=== PATIENT | female | born 1985 | race American Indian/Alaskan Native ===

== ENCOUNTER 2017-09-22 08:20 | Emergency (ER) | payer OTHER ==
[2017-09-22] MEDS ORDERED: REGLAN IV ONE (08:55)
[2017-09-22] MEDS ORDERED: TYLENOL PO ONE (08:55)
[2017-09-22] MEDS ORDERED: ZOFRAN IV ONE (08:55)
--- NOTE | 2017-09-22 08:55 | Emergency Department Report ---
Chief Complaint: Headache Stated Complaint: HEADACHE/NAUSEA Time Seen by Provider: 09/22/17 08:48 - HPI History of Present Illness: This is a 31-year-old female presents to emergency room reports that she hasn't been really bad headaches located frontally she reports that her headache is 9 out of 10 and it tight and squeezing her forehead worse on the left side. She states that she is 7 weeks and she has an appointment to see CRACKING AND FANNING MACHINE OPERATOR Dr. Joslyn Candelario in 2 days. Blood pressure is elevated at 168/90 and she is diabetic and said she did not know what her blood sugar was she did not take it today. She reports nausea and some dizziness but report any vaginal bleeding, discharge, urinary burning, frequency or urgency. She denies any abdominal or back pain. Denies any blurred vision. Denies any shortness of breath or chest pain. Primary care physician in [place]. No medication taken for headache. This is her third with history of 2 miscarriages. - ROS Review of Systems: All systems are negative unless stated in HPI above - Exam Vital Signs: Vital Signs 09/22/17 08:26 Temperature 97.9 F Pulse Rate 98 H Respiratory 18 Rate Blood Pressure 168/90 O2 Sat by Pulse 99 Oximetry Physical Exam: Gen.: 31-year-old female well-nourished well-developed appears to be feeling bad. Head: Normocephalic, atraumatic. No contusion or abrasions Mini neurological exam: Alert and oriented 3, GCS of 14, no facial droop. Normal speech. Gait is normal. Extremities: No clubbing, cyanosis or edema. +2 pulses throughout extremities and no neurovascular compromise MSE screening note: Focused history and physical exam performed. Due to findings the following was ordered: Please refer to screening orders ED Medical Decision Making - Medical Decision Making MDM screening: Patient seen and appropriate orders placed. She is stable. IV fluid, IV meds ordered. See orders for lab. Patient to be seen by [facility]. She is weeks' , diabetes and hypertension. No primary care follow-up ED Disposition for MSE Condition: Stable Referrals: PRIMARY CARE, [Primary Care Provider] - 3-5 Days
[2017-09-22] MEDS ORDERED: NACL 0.9% 1000 ML 1,000 ML IV ONE (08:57)
[2017-09-22 09:29] LABS: Basophils # (Auto) 0.1 K/mm3 (0.0-0.1); Basophils % (Auto) 0.9 % (0.0-1.8); Eosinophils # (Auto) 0.1 K/mm3 (0.0-0.4); Hematocrit 42.7 % (30.3-42.9); Hemoglobin 14.5 gm/dl (10.1-14.3); Lymphocytes # (Auto) 1.5 K/mm3 (1.2-5.4); Lymphocytes % (Auto) 18.4 % (13.4-35.0); Mean Corpuscular HGB Conc 34 % (30-34); Mean Corpuscular Hemoglobin 30 pg (28-32); Mean Corpuscular Volume 89 fl (79-97); Monocytes # (Auto) 0.3 K/mm3 (0.0-0.8); Monocytes % (Auto) 4.1 % (0.0-7.3); Platelet Count 395 K/mm3 (140-440); Red Blood Count 4.82 M/mm3 (3.65-5.03); Red Cell Distribution Width 14.2 % (13.2-15.2)
[2017-09-22 09:32] LABS: BUN/Creatinine Ratio 16; Blood Urea Nitrogen 8 mg/dL (7-17); Calcium 9.8 mg/dL (8.4-10.2); Hemolysis Index 31
[2017-09-22] MEDS ORDERED: NORMODYNE IV ONE (09:49)
--- NOTE | 2017-09-22 10:22 | Emergency Department Report ---
HPI - General Chief Complaint: Headache Time Seen by Provider: 09/22/17 08:48 - HPI HPI: This is a 31-year-old female presents to emergency room reports with a complaint of a frontal headache that is 9 out of 10 and it tight and squeezing her forehead. She states that she is 7 weeks and with 2 previous miscarriage. She just moved up here from [place] and therefore does not have any local primary care physician or PROFESSOR OF ENVIRONMENTAL ENGINEERING. However she has an appointment to see PROFESSOR OF ENVIRONMENTAL ENGINEERING Dr. Joslyn Candelario in 2 days. Blood pressure is elevated at 168/90 and she is diabetic. She reports nausea and some dizziness but denies any vaginal bleeding, discharge, urinary burning, frequency or urgency, abdominal or back pain. Denies any blurred vision. Denies any shortness of breath or chest pain. She has not taken anything for her headache prior to presentation. She was on hydrochlorothiazide but stopped taking it recently secondary to the . ED Past Medical Hx - Past Medical History Hx Hypertension: Yes Hx Diabetes: Yes - Social History Smoking Status: Never Smoker - Medications Home Medications: Home Medications Medication Instructions Recorded Confirmed Last Taken Type Labetalol [Normodyne TAB] 100 mg PO BID #40 tablet 09/22/17 Unknown Rx Vit-Fe Fumar-FA [ 1 tab PO QDAY #30 tablet 09/22/17 Unknown Rx Vitamin] ED Review of Systems ROS: Stated complaint: HEADACHE/NAUSEA Other details as noted in HPI Comment: All other systems reviewed and negative Constitutional: denies: chills, fever Eyes: denies: eye pain, eye discharge, vision change ENT: denies: ear pain, throat pain Respiratory: denies: cough, shortness of breath, wheezing Cardiovascular: denies: chest pain, palpitations Gastrointestinal: nausea. denies: abdominal pain, vomiting Genitourinary: denies: urgency, dysuria, discharge Musculoskeletal: denies: back pain, joint swelling, arthralgia Skin: denies: rash, lesions Neurological: headache. denies: numbness, paresthesias Physical Exam - Physical Exam Vital Signs: Vital Signs 09/22/17 09/22/17 08:26 10:16 Temperature 97.9 F Pulse Rate 98 H 98 H Respiratory 18 Rate Blood Pressure 168/90 168/90 O2 Sat by Pulse 99 Oximetry Physical Exam: GENERAL: The patient is well-developed well-nourished. HENT: Normocephalic. Atraumatic. Patient has moist mucous membranes. EYES: Extraocular motions are intact. Pupils equal reactive to light bilaterally. NECK: Supple. Trachea is midline. CHEST/LUNGS: Clear to auscultation. There is no respiratory distress noted. HEART/CARDIOVASCULAR: Regular. There is no tachycardia. There is no murmur. ABDOMEN: Abdomen is soft, nontender. Patient has normal bowel sounds. There is no abdominal distention. SKIN: Skin is warm and dry. No appreciable lower extremity edema. NEURO: The patient is awake, alert, and oriented. The patient is cooperative. The patient has no focal neurologic deficits. The patient has normal speech. Cranial nerves II through XII grossly intact. MUSCULOSKELETAL: There is no tenderness or deformity. There is no evidence of acute injury. ED Course Vital Signs 09/22/17 09/22/17 08:26 10:16 Temperature 97.9 F Pulse Rate 98 H 98 H Respiratory 18 Rate Blood Pressure 168/90 168/90 O2 Sat by Pulse 99 Oximetry ED Medical Decision Making - Lab Data Result diagrams: 09/22/17 09:07 09/22/17 09:07 - Medical Decision Making The patient was reevaluated multiple times for multiple hours and is feeling improved. Labs are mostly unremarkable. She had about 20 ketones in the urine but no urinary tract infection. She might have some mild dehydration and was given a liter of IV fluid. She was given some medication for nausea and that has completely resolved. She says her headache is down to about a 1-2 out of 10 and greatly improved. Labs do not show any renal insufficiency, signs of infection or proteinuria. She was given a small dose of labetalol and her blood pressure came down to a much more reasonable level. Since she does not have any complaints of any vaginal bleeding, back pain or abdominal pain, I did not feel that we needed to do any ultrasound imaging regarding her . She is not far enough along for heart tones alone. She has an appointment coming up this Sunday with her PROFESSOR OF ENVIRONMENTAL ENGINEERING. Her blood sugar was slightly elevated at 230 and came down to about 200 with just IV fluid resuscitation. As she is on a diabetes pill that may not be safe for , we have discussed dietary changes to make and that her PROFESSOR OF ENVIRONMENTAL ENGINEERING can decide how to better treat her diabetes while . I have changed her blood pressure medication from hydrochlorothiazide to labetalol 100 mg twice daily. We discussed dietary changes to make for her hypertension as well. We also discussed keeping a blood pressure log as well as a log of her pulse to make sure that this medication is working and does not cause any hypotension or bradycardia. She will return immediately to the emergency Department with any worsening of her symptoms or any acute distress. - Differential Diagnosis preeclampsia, dehydration, viral syndrome, hyperemesis gravidarum, tension Critical Care Time: No Critical care attestation.: If time is entered above; I have spent that time in minutes in the direct care of this critically ill patient, excluding procedure time. ED Disposition Clinical Impression: Dehydration Qualifiers: Weeks of gestation: less than 8 weeks Qualified Code(s): Z3A.01 - Less than 8 weeks gestation of Hypertension Qualifiers: Hypertension type: essential hypertension Qualified Code(s): I10 - Essential ( primary) hypertension Hyperglycemia due to type 2 diabetes mellitus Qualifiers: Diabetes mellitus exterminator helper insulin use: without exterminator helper use Qualified Code(s ): E11.65 - Type 2 diabetes mellitus with hyperglycemia Headache Qualifiers: Headache type: unspecified Headache chronicity pattern: unspecified pattern Intractability: not intractable Qualified Code(s): R51 - Headache Disposition: DC-01 TO HOME OR SELFCARE Is pt being admited?: No Condition: Stable Instructions: (ED), Dehydration (ED), Diabetes Mellitus Type 2 in Adults (ED), Hypertension (ED) Additional Instructions: Please follow-up with your PROFESSOR OF ENVIRONMENTAL ENGINEERING on Sunday as previously scheduled. Increase your oral rehydration. Return to the emergency Department with any worsening of your symptoms or any acute distress. Stop taking the HCTZ and I have started you on labetalol 100 mg twice daily. Please buy a blood pressure machine and keep a blood pressure log. You should also check her pulse. Try and stay away from foods that are high in salt and caffeinated products. Try and stay away from foods that are high in sugar, carbohydrates and starches. Keep a blood sugar log. Prescriptions: Labetalol [Normodyne TAB] 100 mg PO BID #40 tablet Vit-Fe Fumar-FA [ Vitamin] 1 tab PO QDAY #30 tablet Referrals: PROFESSOR OF ENVIRONMENTAL ENGINEERING, Your [Other] - 09/24/17 Time of Disposition: 12:48
[2017-09-22 10:38] LABS: Bilirubin,Urine NEG (Negative); Blood,Urine NEG (Negative); Color,Urine Yellow (Yellow); Mucus,Urine FEW /HPF; Protein,Urine <15 mg/dL mg/dL (Negative); Urobilinogen,Urine < 2.0 mg/dL (<2.0)
[2017-09-22 12:13] VITALS: BP 131/68
== END 2017-09-22 13:31 | disposition home or self-care (01) ==
LOC: ED 08:20
DX: O26.891 Other specified pregnancy related conditions, first trimester (principal); E86.0 Dehydration; E11.65 Type 2 diabetes mellitus with hyperglycemia; I10 Essential (primary) hypertension; Z3A.01 Less than 8 weeks gestation of pregnancy
CPT/HCPCS: 36415; 80048; 81001; 82962; 84702; 85025; 96361; 96374; 96375; 99283; J2405; J2765; J7030